=== PATIENT | male | born 1945 | race Caucasian/White ===

== ENCOUNTER 2017-09-19 17:52 | Emergency (ER) | payer OTHER ==
[~2017-09-19] VITALS: Ht 170.2 cm; Wt 70.6 kg
[2017-09-19 18:32] LABS: HEMATOCRIT 35.3 % (38.0-50.0); MCH 28.7 PG (29.0-34.0); MCHC 34.6 G/DL (30.0-36.0); MCV 83.1 FL (86-99); MEAN PLAT.VOLUME 9.5 uM^3 (9.0-12.4); PLATELET COUNT 238 K/uL (156-360); RBC DIS.WIDTH-CV 13.3 % (11.8-14.6); RBC DIS.WIDTH-SD 40.2 % (39-53); RED BLOOD COUNT 4.25 M/uL (4.00-5.50); WHITE BLOOD COUNT 9.4 K/uL (4.1-10.2)
[2017-09-19 18:46] LABS: CHLORIDE 101 mEq/L (99-109); POTASSIUM 4.5 mEq/L (3.7-5.4); SODIUM 134 mEq/L (136-147)
[2017-09-19 18:47] LABS: GLUCOSE 97 mg/dL (70-99)
[2017-09-19 18:49] LABS: ANION GAP 10 MEQ/L (2-14)
[2017-09-19 18:51] LABS: GFR ESTIMATE (CALCULATED) > 59 mL/min/
[2017-09-19 18:52] LABS: UREA NITROGEN (BUN) 28 mg/dL (9-23)
[2017-09-19 18:55] LABS: TROP-I INTERPRETATION NEGATIVE; TROPONIN-I < 0.01 ng/mL (0.0-0.30)
[2017-09-20 01:06] LABS: TROP-I INTERPRETATION NEGATIVE; TROPONIN-I < 0.01 ng/mL (0.0-0.30)
[2017-09-20] MEDS ORDERED: ZANTAC150 MG PO (01:09)
[2017-09-20 01:58] VITALS: BP 154/67
== END 2017-09-20 01:59 | disposition home or self-care (01) ==
LOC: EME 17:52
PROVIDERS: Emergency Medicine
DX: K29.70 Gastritis, unspecified, without bleeding (principal); R13.10 Dysphagia, unspecified; R07.9 Chest pain, unspecified; I10 Essential (primary) hypertension; F41.9 Anxiety disorder, unspecified; F17.210 Nicotine dependence, cigarettes, uncomplicated; Z88.0 Allergy status to penicillin
CPT/HCPCS: 71020; 80048; 84484; 85027; 93005; 99281; 99284

== ENCOUNTER 2017-10-03 16:56 | Inpatient (IN) | payer OTHER ==
[~2017-10-03] VITALS: Ht 170.2 cm; Wt 65.0 kg
[~2017-10-03 16:56] MED LIST: ACCUPRIL20 MG GT; ATIVAN1 MG PO; ZANTAC150 MG PO
[2017-10-03 17:58] LABS: HEMATOCRIT 38.2 % (38.0-50.0); MCH 28.1 PG (29.0-34.0); MCV 82.7 FL (86-99); MEAN PLAT.VOLUME 9.9 uM^3 (9.0-12.4); PLATELET COUNT 298 K/uL (156-360); RBC DIS.WIDTH-CV 12.7 % (11.8-14.6); RBC DIS.WIDTH-SD 38.5 % (39-53); RED BLOOD COUNT 4.62 M/uL (4.00-5.50); WHITE BLOOD COUNT 11.1 K/uL (4.1-10.2)
[2017-10-03 18:06] LABS: CHLORIDE 101 mEq/L (99-109); POTASSIUM 4.3 mEq/L (3.7-5.4); SODIUM 134 mEq/L (136-147)
[2017-10-03 18:08] LABS: GLUCOSE 99 mg/dL (70-99)
[2017-10-03 18:10] LABS: ANION GAP 11 MEQ/L (2-14); TOTAL BILIRUBIN 0.8 mg/dL (0.0-1.0)
[2017-10-03 18:12] LABS: ALKALINE PHOSPHATASE 70 IU/L (3-129); GFR ESTIMATE (CALCULATED) > 59 mL/min/
[2017-10-03 18:13] LABS: UREA NITROGEN (BUN) 33 mg/dL (9-23)
[2017-10-03 19:08] LABS: ADD MIUA? YES; BILIRUBIN NEGATIVE; BLOOD NEGATIVE; COLOR YELLOW ((YELLOW)); GLUCOSE (STRIP) NEGATIVE; KETONES 5; LEUKOCYTES NEGATIVE; NITRITE NEGATIVE; PROTEIN (STRIP) NEGATIVE; SPECIFIC GRAVITY 1.024 (1.000-1.030); UROBILINOGEN 0.2 MG/DL (0.2-1.0)
[2017-10-03 19:12] LABS: BACTERIA 1+ /HPF; EPITHELIAL CELLS NONE SEEN /HPF; MUCUS 2+ /LPF; RED BLOOD CELLS 0-5 /HPF (0-5); UCUL ADDED? NO; WHITE BLOOD CELLS 0-5 /HPF (0-5)
[2017-10-03 19:20] LABS: LIPASE 76 U/L (1.0-51.0)
[2017-10-03] MEDS ORDERED: ZANTAC150 MG PO (23:15)
[2017-10-04 02:50] VITALS: BP 138/64
[2017-10-04 07:32] VITALS: BP 114/53
[2017-10-04 15:49] VITALS: BP 131/77
[2017-10-05 00:08] VITALS: BP 131/65
[2017-10-05 07:10] VITALS: BP 145/74
[2017-10-05 07:22] LABS: HEMATOCRIT 32.2 % (38.0-50.0); MCH 27.6 PG (29.0-34.0); MCHC 33.5 G/DL (30.0-36.0); MCV 82.1 FL (86-99); MEAN PLAT.VOLUME 9.9 uM^3 (9.0-12.4); PLATELET COUNT 236 K/uL (156-360); RBC DIS.WIDTH-CV 12.7 % (11.8-14.6); RBC DIS.WIDTH-SD 38.5 % (39-53); RED BLOOD COUNT 3.92 M/uL (4.00-5.50); WHITE BLOOD COUNT 9.2 K/uL (4.1-10.2)
[2017-10-05 07:35] LABS: ANION GAP 11 MEQ/L (2-14); CHLORIDE 103 MEQ/L (99-109); GFR ESTIMATE (CALCULATED) > 59 mL/min/; GLUCOSE 102 mg/dL (70-99); POTASSIUM 3.9 MEQ/L (3.7-5.4); SAMPLE HEMOLYSIS CHECK 0; SAMPLE ICTERIC CHECK 0; SAMPLE LIPEMIA CHECK 0; SODIUM 135 MEQ/L (136-147); UREA NITROGEN (BUN) 25 mg/dL (9-23)
[2017-10-05 16:18] VITALS: BP 157/67
[2017-10-06 00:23] VITALS: BP 132/61
[2017-10-06 07:45] VITALS: BP 108/56
[2017-10-06 15:47] VITALS: BP 129/74
[2017-10-06 23:50] VITALS: BP 137/66
[2017-10-07 07:30] VITALS: BP 105/60
[2017-10-07 12:38] LABS: C DIFF TOXIN ND (NEGATIVE)
[2017-10-07 23:47] VITALS: BP 119/61
[2017-10-08 00:50] LABS: CHLORIDE 105 mEq/L (99-109); POTASSIUM 3.3 mEq/L (3.7-5.4); SODIUM 134 mEq/L (136-147)
[2017-10-08 00:52] LABS: GLUCOSE 122 mg/dL (70-99)
[2017-10-08 00:53] LABS: ANION GAP 7 MEQ/L (2-14); EOSINOPHIL (%) 0.1 % (0-5); HEMATOCRIT 25.5 % (38.0-50.0); IMMATURE GRANULOCYTE (%) 0.4 % (0.0-0.7); INSTRUMENT ABS NEUTROPHIL CT 8.4 K/uL; LYMPHOCYTE COUNT 0.9 K/uL (1.0-2.8); MCH 28.1 PG (29.0-34.0); MCHC 34.1 G/DL (30.0-36.0); MCV 82.3 FL (86-99); MEAN PLAT.VOLUME 9.6 uM^3 (9.0-12.4); MONOCYTE (%) 7.9 % (3-12); MONOCYTE COUNT 0.8 K/uL (0-0.8); NEUTROPHIL (%) 82.6 % (45-76); NEUTROPHIL COUNT 8.4 K/uL (1.8-6.4); PLATELET COUNT 186 K/uL (156-360); RBC DIS.WIDTH-CV 12.8 % (11.8-14.6); RBC DIS.WIDTH-SD 38.8 % (39-53); WHITE BLOOD COUNT 10.2 K/uL (4.1-10.2)
[2017-10-08 00:54] LABS: TOTAL BILIRUBIN 0.8 mg/dL (0.0-1.0)
[2017-10-08 00:56] LABS: GFR ESTIMATE (CALCULATED) > 59 mL/min/
[2017-10-08 00:57] LABS: UREA NITROGEN (BUN) 15 mg/dL (9-23)
[2017-10-08 01:00] LABS: ALKALINE PHOSPHATASE 145 IU/L (3-129)
[2017-10-08 07:39] VITALS: BP 109/65
[2017-10-08 12:37] LABS: ADD MIUA? NO; BILIRUBIN NEGATIVE; BLOOD NEGATIVE; COLOR AMBER ((YELLOW)); GLUCOSE (STRIP) NEGATIVE; KETONES NEGATIVE; LEUKOCYTES NEGATIVE; NITRITE NEGATIVE; PROTEIN (STRIP) NEGATIVE; SPECIFIC GRAVITY 1.021 (1.000-1.030)
[2017-10-08 15:29] VITALS: BP 147/72
[2017-10-08 23:20] VITALS: BP 131/64
[2017-10-09 07:03] LABS: EOSINOPHIL (%) 0.2 % (0-5); HEMATOCRIT 25.3 % (38.0-50.0); IMMATURE GRANULOCYTE (%) 0.5 % (0.0-0.7); IMMATURE GRANULOCYTE COUNT 0.1 K/uL; INSTRUMENT ABS NEUTROPHIL CT 8.3 K/uL; MCH 27.6 PG (29.0-34.0); MCHC 33.2 G/DL (30.0-36.0); MCV 83.2 FL (86-99); MONOCYTE (%) 10.1 % (3-12); MONOCYTE COUNT 1.1 K/uL (0-0.8); NEUTROPHIL (%) 79.1 % (45-76); NEUTROPHIL COUNT 8.3 K/uL (1.8-6.4); PLATELET COUNT 222 K/uL (156-360); RBC DIS.WIDTH-SD 39.8 % (39-53); RED BLOOD COUNT 3.04 M/uL (4.00-5.50); WHITE BLOOD COUNT 10.5 K/uL (4.1-10.2)
[2017-10-09 07:34] LABS: ALKALINE PHOSPHATASE 120 IU/L (3-129); ANION GAP 6 MEQ/L (2-14); CHLORIDE 106 MEQ/L (99-109); GFR ESTIMATE (CALCULATED) > 59 mL/min/; GLUCOSE 128 mg/dL (70-99); POTASSIUM 3.9 MEQ/L (3.7-5.4); SAMPLE HEMOLYSIS CHECK 0; SAMPLE ICTERIC CHECK 0; SAMPLE LIPEMIA CHECK 0; SODIUM 135 MEQ/L (136-147); TOTAL BILIRUBIN 0.5 MG/DL (0.0-1.0); UREA NITROGEN (BUN) 14 mg/dL (9-23)
[2017-10-09 07:50] VITALS: BP 146/71
[2017-10-09 16:41] VITALS: BP 147/77
[2017-10-09 23:30] VITALS: BP 149/69
[2017-10-10 07:56] VITALS: BP 146/69
[2017-10-10 16:00] VITALS: BP 145/71
[2017-10-11] VITALS (8 sets, daily range): BP systolic 124–178; BP diastolic 60–90
[2017-10-11 06:32] LABS: HEMATOCRIT 22.2 % (38.0-50.0); MCH 27.9 PG (29.0-34.0); MCHC 33.8 G/DL (30.0-36.0); MCV 82.5 FL (86-99); PLATELET COUNT 257 K/uL (156-360); RBC DIS.WIDTH-CV 13.4 % (11.8-14.6); RBC DIS.WIDTH-SD 40.7 % (39-53); RED BLOOD COUNT 2.69 M/uL (4.00-5.50)
[2017-10-11 06:49] LABS: ALKALINE PHOSPHATASE 99 IU/L (3-129); ANION GAP 8 MEQ/L (2-14); CHLORIDE 104 MEQ/L (99-109); GFR ESTIMATE (CALCULATED) > 59 mL/min/; GLUCOSE 129 mg/dL (70-99); POTASSIUM 3.6 MEQ/L (3.7-5.4); SAMPLE HEMOLYSIS CHECK 0; SAMPLE ICTERIC CHECK 0; SAMPLE LIPEMIA CHECK 0; SODIUM 138 MEQ/L (136-147); TOTAL BILIRUBIN 0.5 MG/DL (0.0-1.0)
[2017-10-11 06:51] LABS: UREA NITROGEN (BUN) 27 mg/dL (9-23)
[2017-10-11 09:11] LABS: IRON 10 MCG/DL (35-150)
[2017-10-11 09:30] LABS: FERRITIN 275 NG/ML (22-322)
[2017-10-11 09:54] LABS: MAGNESIUM 1.9 mg/dl (1.3-2.7)
[2017-10-12] VITALS (8 sets, daily range): BP systolic 146–166; BP diastolic 67–74
[2017-10-12 06:32] LABS: MCH 28.5 PG (29.0-34.0); MCHC 34.1 G/DL (30.0-36.0); MCV 83.6 FL (86-99); MEAN PLAT.VOLUME 10.5 uM^3 (9.0-12.4); PLATELET COUNT 238 K/uL (156-360); RBC DIS.WIDTH-CV 13.7 % (11.8-14.6); RBC DIS.WIDTH-SD 41.6 % (39-53); RED BLOOD COUNT 3.47 M/uL (4.00-5.50); WHITE BLOOD COUNT 8.5 K/uL (4.1-10.2)
[2017-10-12 06:48] LABS: ANION GAP 10 MEQ/L (2-14); CHLORIDE 103 MEQ/L (99-109); GFR ESTIMATE (CALCULATED) > 59 mL/min/; GLUCOSE 163 mg/dL (70-99); SAMPLE HEMOLYSIS CHECK 0; SAMPLE ICTERIC CHECK 0; SAMPLE LIPEMIA CHECK 0; SODIUM 138 MEQ/L (136-147); UREA NITROGEN (BUN) 30 mg/dL (9-23)
[2017-10-12] MEDS ORDERED: DOCU LIQUI50 MG/5 ML GT (14:52)
== END 2017-10-12 17:45 | disposition home health service (06) | DRG 330 ==
LOC: EME 16:56 → 5SOUTH 23:52 → EDOF 23:52 → ENRESERV 23:54 → 5SOUTH 10-04 02:42 → ENRESERV 10-11 09:27 → 5EAST 10-11 14:50
PROVIDERS: Hospitalist; Internal Medicine; Internal Medicine Hematology & Oncology
DX: C15.5 Malignant neoplasm of lower third of esophagus (principal); C78.7 Secondary malignant neoplasm of liver and intrahepatic bile duct; K22.2 Esophageal obstruction; R13.10 Dysphagia, unspecified; T18.128A Food in esophagus causing other injury, initial encounter; E44.0 Moderate protein-calorie malnutrition; E86.0 Dehydration; R62.7 Adult failure to thrive; N39.0 Urinary tract infection, site not specified; D64.9 Anemia, unspecified; I10 Essential (primary) hypertension; K21.9 Gastro-esophageal reflux disease without esophagitis; E78.5 Hyperlipidemia, unspecified; F41.9 Anxiety disorder, unspecified; M48.061 Spinal stenosis, lumbar region without neurogenic claudication; R73.03 Prediabetes; Z80.0 Family history of malignant neoplasm of digestive organs; Z88.0 Allergy status to penicillin; Z87.891 Personal history of nicotine dependence
CPT/HCPCS: 74177; 77300; 77301; 77338; 77385; 77470; 80048; 80053; 80202; 81003; 82272; 82728; 83540; 83690; 83735; 84100; 84466; 85025; 85027; 86850; 86900; 86901; 86920; 87040; 87493; 88305; 88341 TC; 88342 TC; 94799; 99281; 99285; B4087; J0330; J0744; J1100; J1170; J1644; J1940; J1956; J2250; J2270; J2405; J2469; J3010; J3370; J7030; J7042; J7050; J9045; J9267; P9016; S0028; S0030

== ENCOUNTER 2017-10-17 14:40 | Emergency (ER) | payer OTHER ==
[~2017-10-17] VITALS: Ht 170.2 cm; Wt 69.9 kg
[~2017-10-17 14:40] MED LIST changes: +DOCU LIQUI50 MG/5 ML GT
[2017-10-17 15:47] LABS: HEMATOCRIT 28.5 % (38.0-50.0); MCH 28.1 PG (29.0-34.0); MCV 85.3 FL (86-99); MEAN PLAT.VOLUME 10.1 uM^3 (9.0-12.4); PLATELET COUNT 311 K/uL (156-360); RBC DIS.WIDTH-CV 13.7 % (11.8-14.6); RBC DIS.WIDTH-SD 42.7 % (39-53); RED BLOOD COUNT 3.34 M/uL (4.00-5.50); WHITE BLOOD COUNT 8.7 K/uL (4.1-10.2)
[2017-10-17 15:53] LABS: INTER. NORMALIZED RATIO 1.3; PROTHROMBIN TIME 14.9 SEC (10.2-12.9)
[2017-10-17 15:55] LABS: PTT 24.9 SEC (25-37)
[2017-10-17 16:00] LABS: CHLORIDE 97 mEq/L (99-109); SODIUM 131 mEq/L (136-147)
[2017-10-17 16:02] LABS: GLUCOSE 108 mg/dL (70-99)
[2017-10-17 16:04] LABS: ANION GAP 8 MEQ/L (2-14); TOTAL BILIRUBIN 2.2 mg/dL (0.0-1.0)
[2017-10-17 16:06] LABS: ALKALINE PHOSPHATASE 98 IU/L (3-129); GFR ESTIMATE (CALCULATED) > 59 mL/min/
[2017-10-17 16:07] LABS: UREA NITROGEN (BUN) 32 mg/dL (9-23)
[2017-10-17 16:26] LABS: ABS NEUTROPHIL COUNT 7.3; ANISOCYTOSIS 1+; BAND NEUTROPHILS 16.5 % (0-8.0); EOSINOPHIL ABS CT 0; INSTRUMENT ABS NEUTROPHIL CT 7.3 K/uL; LYMPHOCYTES 6.1 % (15.0-45.0); MICROCYTOSIS 1+; SEG.NEUTROPHILS 67.8 % (46.0-76.0)
[2017-10-17] MEDS ORDERED: PEPCID20 MG GT (19:31)
[2017-10-17] MEDS ORDERED: HYCET 7.5 MG-3473 ML GT (19:34)
[2017-10-17 22:17] LABS: ADD MIUA? NO; BILIRUBIN NEGATIVE; BLOOD NEGATIVE; COLOR AMBER ((YELLOW)); GLUCOSE (STRIP) NEGATIVE; KETONES NEGATIVE; LEUKOCYTES NEGATIVE; NITRITE NEGATIVE; PROTEIN (STRIP) NEGATIVE; SPECIFIC GRAVITY 1.034 (1.000-1.030); UCUL ADDED? NO
[2017-10-18 06:14] VITALS: BP 147/75
[2017-10-18 07:42] LABS: INTERNAL CONTROL VALID? YES
== END 2017-10-18 06:22 | disposition short-term general hospital (02) ==
LOC: EME 14:40 → EDOF 19:01 → ENRESERV 19:11 → CANRESERV 19:55 → ENRESERV 19:55 → EDOF 10-18 02:33
PROVIDERS: Emergency Medicine; Hospitalist
DX: J18.9 Pneumonia, unspecified organism (principal); I82.611 Acute embolism and thrombosis of superficial veins of right upper extremity; C15.9 Malignant neoplasm of esophagus, unspecified; Z79.899 Other long term (current) drug therapy; I10 Essential (primary) hypertension; K21.9 Gastro-esophageal reflux disease without esophagitis; Z93.4 Other artificial openings of gastrointestinal tract status; Z87.891 Personal history of nicotine dependence; Z88.0 Allergy status to penicillin; Z88.8 Allergy status to other drugs, medicaments and biological substances
CPT/HCPCS: 71275; 80048; 80053; 81003; 83605; 85025; 85025 91; 85610; 85730; 87040; 87070; 87205; 87449; 87502; 93970; 94640 76; 99202; 99281; 99285; J1956; J2543; J3010; J3370; J7030; S0030

== ENCOUNTER 2018-01-23 18:50 | Inpatient (IN) | payer OTHER ==
[~2018-01-23] VITALS: Ht 170.2 cm; Wt 60.4 kg
[~2018-01-23 18:50] MED LIST changes: +HYCET 7.5 MG-3473 ML GT; +PEPCID20 MG GT
[2018-01-23 20:02] LABS: HEMATOCRIT 27.7 % (38.0-50.0); HEMOGLOBIN 9.5 G/DL (12.5-16.6); MCH 27.8 PG (29.0-34.0); MCHC 34.3 G/DL (30.0-36.0); PLATELET COUNT 307 K/uL (156-360); RBC DIS.WIDTH-CV 15.4 % (11.8-14.6); RBC DIS.WIDTH-SD 45.2 % (39-53); RED BLOOD COUNT 3.42 M/uL (4.00-5.50); WHITE BLOOD COUNT 7.6 K/uL (4.1-10.2)
[2018-01-23 20:14] LABS: ALBUMIN 3.5 g/dL (3.2-4.8); CHLORIDE 110 mEq/L (99-109); POTASSIUM 4.5 mEq/L (3.7-5.4); SODIUM 134 mEq/L (136-147)
[2018-01-23 20:17] LABS: GLUCOSE 160 mg/dL (70-99); TOTAL PROTEIN 6.8 g/dL (6.4-8.3)
[2018-01-23 20:19] LABS: TOTAL BILIRUBIN 0.2 mg/dL (0.0-1.0)
[2018-01-23 20:20] LABS: ALKALINE PHOSPHATASE 88 IU/L (3-129); CREATININE 1.8 mg/dL (0.6-1.3); GFR ESTIMATE (CALCULATED) 39 mL/min/ (58.99-99999)
[2018-01-23 20:21] LABS: UREA NITROGEN (BUN) 55 mg/dL (9-23)
[2018-01-23 20:22] LABS: AST (GOT) 21 IU/L (2-34)
[2018-01-23 20:23] LABS: ALT (GPT) 19 IU/L (3-49)
[2018-01-23] MEDS ORDERED: LORAZEPAM1 MG PO (21:29)
[2018-01-23] MEDS ORDERED: METOPROLOL TART25 MG PO (21:29)
[2018-01-23] MEDS ORDERED: QUINAPRIL HCL20 MG PO (21:29)
[2018-01-24 00:03] VITALS: BP 182/86
[2018-01-24 00:19] VITALS: BP 182/86
[2018-01-24 02:35] VITALS: BP 190/89
[2018-01-24 06:23] LABS: HEMATOCRIT 29.7 % (38.0-50.0); HEMOGLOBIN 9.7 G/DL (12.5-16.6); MCH 26.5 PG (29.0-34.0); MCHC 32.7 G/DL (30.0-36.0); MCV 81.1 FL (86-99); PLATELET COUNT 311 K/uL (156-360); RBC DIS.WIDTH-CV 15.3 % (11.8-14.6); RBC DIS.WIDTH-SD 45.3 % (39-53); RED BLOOD COUNT 3.66 M/uL (4.00-5.50); WHITE BLOOD COUNT 9.8 K/uL (4.1-10.2)
[2018-01-24 06:55] VITALS: BP 120/63
[2018-01-24 07:33] LABS: CHLORIDE 114 MEQ/L (99-109); CREATININE 1.5 MG/DL (0.6-1.3); GFR ESTIMATE (CALCULATED) 49 mL/min/ (58.99-99999); POTASSIUM 5.4 MEQ/L (3.7-5.4); SODIUM 137 MEQ/L (136-147); UREA NITROGEN (BUN) 46 mg/dL (9-23)
[2018-01-24 07:35] LABS: GLUCOSE 102 mg/dL (70-99)
[2018-01-24 09:41] LABS: BASE EXCESS -8.3 mEq/L (-3 to +3); BICARBONATE 14.3 mEq/L (22-26); CARBOXY HGB 1.4 % (0-5); COMMENTS - BLOOD GASES A+C+; METHEMOGLOBIN 1.1 % (0-1.5); PCO2 21 mm Hg (35-45); PO2 119 mm Hg (80-100); SITE LR; pH 7.44 (7.35-7.45)
[2018-01-24 15:31] VITALS: BP 103/60
[2018-01-24 20:16] VITALS: BP 156/77
[2018-01-25] VITALS (7 sets, daily range): BP systolic 110–140; BP diastolic 56–64
[2018-01-25 06:52] LABS: BASOPHIL (%) 0.4 % (0-1); EOSINOPHIL (%) 1.9 % (0-5); EOSINOPHIL COUNT 0.1 K/uL (0-0.3); HEMATOCRIT 26.4 % (38.0-50.0); HEMOGLOBIN 8.9 G/DL (12.5-16.6); IMMATURE GRANULOCYTE (%) 0.9 % (0.0-0.7); LYMPHOCYTE (%) 20.2 % (15-42); LYMPHOCYTE COUNT 1.4 K/uL (1.0-2.8); MCH 27.1 PG (29.0-34.0); MCHC 33.7 G/DL (30.0-36.0); MCV 80.2 FL (86-99); MONOCYTE (%) 11.5 % (3-12); MONOCYTE COUNT 0.8 K/uL (0-0.8); NEUTROPHIL (%) 65.1 % (45-76); NEUTROPHIL COUNT 4.5 K/uL (1.8-6.4); PLATELET COUNT 276 K/uL (156-360); RBC DIS.WIDTH-CV 15.5 % (11.8-14.6); RBC DIS.WIDTH-SD 45.2 % (39-53); RED BLOOD COUNT 3.29 M/uL (4.00-5.50); WHITE BLOOD COUNT 6.8 K/uL (4.1-10.2)
[2018-01-25 07:19] LABS: CHLORIDE 105 MEQ/L (99-109); CREATININE 1.4 MG/DL (0.6-1.3); GFR ESTIMATE (CALCULATED) 53 mL/min/ (58.99-99999); GLUCOSE 96 mg/dL (70-99); SODIUM 138 MEQ/L (136-147); UREA NITROGEN (BUN) 29 mg/dL (9-23)
[2018-01-25 07:21] LABS: POTASSIUM 4.3 MEQ/L (3.7-5.4)
[2018-01-26 06:14] LABS: BASOPHIL (%) 0.7 % (0-1); EOSINOPHIL COUNT 0.2 K/uL (0-0.3); HEMATOCRIT 26.2 % (38.0-50.0); HEMOGLOBIN 8.5 G/DL (12.5-16.6); IMMATURE GRANULOCYTE (%) 0.7 % (0.0-0.7); LYMPHOCYTE (%) 23.7 % (15-42); LYMPHOCYTE COUNT 1.4 K/uL (1.0-2.8); MCH 26.2 PG (29.0-34.0); MCHC 32.4 G/DL (30.0-36.0); MCV 80.9 FL (86-99); MONOCYTE (%) 13.6 % (3-12); MONOCYTE COUNT 0.8 K/uL (0-0.8); NEUTROPHIL (%) 57.3 % (45-76); NEUTROPHIL COUNT 3.3 K/uL (1.8-6.4); PLATELET COUNT 280 K/uL (156-360); RBC DIS.WIDTH-CV 15.3 % (11.8-14.6); RED BLOOD COUNT 3.24 M/uL (4.00-5.50); WHITE BLOOD COUNT 5.8 K/uL (4.1-10.2)
[2018-01-26 06:47] LABS: CHLORIDE 101 MEQ/L (99-109); CREATININE 1.4 MG/DL (0.6-1.3); GFR ESTIMATE (CALCULATED) 53 mL/min/ (58.99-99999); GLUCOSE 94 mg/dL (70-99); SODIUM 136 MEQ/L (136-147); UREA NITROGEN (BUN) 27 mg/dL (9-23)
[2018-01-26 07:30] VITALS: BP 126/66
[2018-01-26 11:37] VITALS: BP 125/62
[2018-01-26] MEDS ORDERED: FLUCONAZOLE100 MG PO (15:19)
[2018-01-26] MEDS ORDERED: AMLODIPINE BESYL5 MG PO (15:19)
[2018-01-26] MEDS ORDERED: TAMSULOSIN HCL0.4 MG PO (15:19)
== END 2018-01-26 17:05 | disposition home or self-care (01) | DRG 683 ==
LOC: EME 18:50 → EDOF 23:01 → 5EAST 23:01 → ENRESERV 23:02 → 5EAST 23:57
PROVIDERS: Emergency Medicine; Hospitalist
DX: N17.9 Acute kidney failure, unspecified (principal); N13.30 Unspecified hydronephrosis; R33.9 Retention of urine, unspecified; D64.9 Anemia, unspecified; N13.8 Other obstructive and reflux uropathy; N30.01 Acute cystitis with hematuria; I12.9 Hypertensive chronic kidney disease with stage 1 through stage 4 chronic kidney disease, or unspecified chronic kidney disease; N18.3 Chronic kidney disease, stage 3 (moderate); E87.2 Acidosis; E87.3 Alkalosis; N40.1 Benign prostatic hyperplasia with lower urinary tract symptoms; Z85.01 Personal history of malignant neoplasm of esophagus; Z80.0 Family history of malignant neoplasm of digestive organs; Z23 Encounter for immunization; Z87.891 Personal history of nicotine dependence; Z90.49 Acquired absence of other specified parts of digestive tract; Z88.0 Allergy status to penicillin; Z88.8 Allergy status to other drugs, medicaments and biological substances; Z79.899 Other long term (current) drug therapy; Z87.440 Personal history of urinary (tract) infections
CPT/HCPCS: 36600; 74176; 76770; 80048; 80053; 82803; 82948; 85025; 85027; 87086; 87106; 90686; 99281; 99284; J0360; J1956; J7030; J7050; J7070

== ENCOUNTER 2018-02-27 06:18 | Day surgery (SDC) | payer OTHER ==
[~2018-02-27] VITALS: Ht 170.2 cm; Wt 66.7 kg
[~2018-02-27 06:18] MED LIST changes: +AMLODIPINE BESYL5 MG PO; +FLUCONAZOLE100 MG PO; +LORAZEPAM1 MG PO; +METOPROLOL TART25 MG PO; +QUINAPRIL HCL20 MG PO; +TAMSULOSIN HCL0.4 MG PO
== END 2018-02-27 09:00 | disposition home or self-care (01) ==
LOC: CATH 06:18
DX: I87.8 Other specified disorders of veins (principal); C15.9 Malignant neoplasm of esophagus, unspecified; Z87.891 Personal history of nicotine dependence; Z82.49 Family history of ischemic heart disease and other diseases of the circulatory system; Z80.0 Family history of malignant neoplasm of digestive organs
CPT/HCPCS: C1752; C1894; J1200; J1644; J2250; S0020

== ENCOUNTER → 2018-05-16 | Outpatient (CLI) | payer OTHER ==
[~2018-05-16] MED LIST changes: +CLARITIN,ALAVAR10 MG PO; +FLOMAX0.4 MG PO
== END | disposition home or self-care (01) ==
LOC: CDC 11:25
DX: Z01.810 Encounter for preprocedural cardiovascular examination (principal); N40.1 Benign prostatic hyperplasia with lower urinary tract symptoms; N13.8 Other obstructive and reflux uropathy; I45.10 Unspecified right bundle-branch block
CPT/HCPCS: 93000